=== PATIENT | male | born 1980 | race Caucasian/White ===

== ENCOUNTER 2017-06-23 22:18 | Emergency (ER) | payer OTHER ==
[~2017-06-23] VITALS: Ht 170.2 cm; Wt 62.0 kg
--- NOTE | 2017-06-23 23:07 | PD ---
HPI Chief Complaint: Psychiatric Symptoms Time Seen by Provider: 23:03 Travel History International Travel<30 days: No Contact w/Intl Traveler<30days: No Traveled to known affect area: No History of Present Illness HPI 37-year-old male presents emergency Department under Gupta act by PD. Patient states that he had contacted police because she was feeling sad. He states that he has a live-in girlfriend of 2 years that he feels has been using him for money to buy drugs. He also states that there was a black male that had called him inquiring whether he needed to buy some. The patient feels that this person may be one of her drug dealers. He denies any suicidal homicidal ideation. No toxic ingestions. He states that he merely would like to speak with someone. According to the Gupta act had made suicidal statement. The patient here denies this. PFSH Past Medical History Medical History: Denies Significant Hx Immunizations Current: No (NEVER WANTED THEM) Tetanus Vaccination: Unknown Past Surgical History Surgical History: No Previous Surgery Social History Alcohol Use: Yes Tobacco Use: No Substance Use: No Allergies-Medications Reported Meds & Prescriptions Reported Meds & Active Scripts Active No Active Prescriptions or Reported Medications Review of Systems Except as stated in HPI: all other systems reviewed are Neg Physical Exam Narrative GENERAL: Well-nourished, well-developed patient. SKIN: Warm and dry. HEAD: Normocephalic and atraumatic. EYES: No scleral icterus. No injection or drainage. ENT: No nasal drainage noted. Mucous membranes pink. Airway patent. NECK: Supple, trachea midline. Moves head freely without obvious discomfort. CARDIOVASCULAR: Regular rate and rhythm without murmurs, gallops, or rubs. RESPIRATORY: Breath sounds equal bilaterally. No accessory muscle use. GASTROINTESTINAL: Abdomen soft, non-tender, nondistended. EXTREMITIES: No cyanosis or edema. BACK: Nontender without obvious deformity. No CVA tenderness. NEURO: Patient is alert and oriented. no sensorimotor deficits. Nonfocal. Normal speech. PSYCH: No delusions. No auditory or visual hallucinations. Data Data Orders Complete Blood Count With Diff (06/23/17 22:38) Comprehensive Metabolic Panel (06/23/17 22:38) Psych Screen (06/23/17 22:38) Drug Screen, Random Urine (06/23/17 22:38) Alcohol (Ethanol) (06/23/17 22:38) Salicylates (Aspirin) (06/23/17 22:38) Tylenol (Acetaminophen) (06/23/17 22:38) Labs Laboratory Tests Test 06/23/17 06/23/17 22:56 23:03 Urine Opiates Screen NEG Urine Barbiturates Screen NEG Urine Amphetamines Screen NEG Urine Benzodiazepines Screen NEG Urine Cocaine Screen NEG Urine Cannabinoids Screen NEG White Blood Count 7.9 TH/MM3 Red Blood Count 4.49 MIL/MM3 Hemoglobin 13.9 GM/DL Hematocrit 40.2 % Mean Corpuscular Volume 89.6 FL Mean Corpuscular Hemoglobin 31.0 PG Mean Corpuscular Hemoglobin 34.6 % Concent Red Cell Distribution Width 12.8 % Platelet Count 274 TH/MM3 Mean Platelet Volume 7.6 FL Neutrophils (%) (Auto) 65.6 % Lymphocytes (%) (Auto) 21.7 % Monocytes (%) (Auto) 9.4 % Eosinophils (%) (Auto) 2.1 % Basophils (%) (Auto) 1.2 % Neutrophils # (Auto) 5.2 TH/MM3 Lymphocytes # (Auto) 1.7 TH/MM3 Monocytes # (Auto) 0.7 TH/MM3 Eosinophils # (Auto) 0.2 TH/MM3 Basophils # (Auto) 0.1 TH/MM3 CBC Comment DIFF FINAL Differential Comment Sodium Level 138 MEQ/L Potassium Level 3.3 MEQ/L Chloride Level 106 MEQ/L Carbon Dioxide Level 26.8 MEQ/L Anion Gap 5 MEQ/L Blood Urea Nitrogen 8 MG/DL Creatinine 0.88 MG/DL Estimat Glomerular Filtration 99 ML/MIN Rate Random Glucose 98 MG/DL Calcium Level 8.5 MG/DL Total Bilirubin 0.5 MG/DL Aspartate Amino Transf 12 U/L (AST/SGOT) Alanine Aminotransferase 22 U/L (ALT/SGPT) Alkaline Phosphatase 73 U/L Total Protein 7.3 GM/DL Albumin 4.1 GM/DL Salicylates Level LESS THAN 1.7 MG/DL Acetaminophen Level LESS THAN 2.0 MCG/ML Ethyl Alcohol Level LESS THAN 3 MG/DL MDM Medical Decision Making Medical Screen Exam Complete: Yes Emergency Medical Condition: Yes Medical Record Reviewed: Yes Interpretation(s) Laboratory Tests Test 06/23/17 06/23/17 22:56 23:03 Urine Opiates Screen NEG Urine Barbiturates Screen NEG Urine Amphetamines Screen NEG Urine Benzodiazepines Screen NEG Urine Cocaine Screen NEG Urine Cannabinoids Screen NEG White Blood Count 7.9 TH/MM3 Red Blood Count 4.49 MIL/MM3 Hemoglobin 13.9 GM/DL Hematocrit 40.2 % Mean Corpuscular Volume 89.6 FL Mean Corpuscular Hemoglobin 31.0 PG Mean Corpuscular Hemoglobin 34.6 % Concent Red Cell Distribution Width 12.8 % Platelet Count 274 TH/MM3 Mean Platelet Volume 7.6 FL Neutrophils (%) (Auto) 65.6 % Lymphocytes (%) (Auto) 21.7 % Monocytes (%) (Auto) 9.4 % Eosinophils (%) (Auto) 2.1 % Basophils (%) (Auto) 1.2 % Neutrophils # (Auto) 5.2 TH/MM3 Lymphocytes # (Auto) 1.7 TH/MM3 Monocytes # (Auto) 0.7 TH/MM3 Eosinophils # (Auto) 0.2 TH/MM3 Basophils # (Auto) 0.1 TH/MM3 CBC Comment DIFF FINAL Differential Comment Sodium Level 138 MEQ/L Potassium Level 3.3 MEQ/L Chloride Level 106 MEQ/L Carbon Dioxide Level 26.8 MEQ/L Anion Gap 5 MEQ/L Blood Urea Nitrogen 8 MG/DL Creatinine 0.88 MG/DL Estimat Glomerular Filtration 99 ML/MIN Rate Random Glucose 98 MG/DL Calcium Level 8.5 MG/DL Total Bilirubin 0.5 MG/DL Aspartate Amino Transf 12 U/L (AST/SGOT) Alanine Aminotransferase 22 U/L (ALT/SGPT) Alkaline Phosphatase 73 U/L Total Protein 7.3 GM/DL Albumin 4.1 GM/DL Salicylates Level LESS THAN 1.7 MG/DL Acetaminophen Level LESS THAN 2.0 MCG/ML Ethyl Alcohol Level LESS THAN 3 MG/DL Differential Diagnosis MDM: High Differential diagnoses: depression, adjustment reaction, mood disorder NOS, schizophrenia, psychosis NOS substance induced mood disorder, intermittent explosive disorder, , infection,electrolyte abnormality, malingering. Narrative Course Mental health screening discussed with the patient. Psychiatric screen ordered. The patient's been medically clear. This is medical clearance for psychiatric admission Diagnosis Primary Impression: Medical clearance for psychiatric admission Scripts No Active Prescriptions or Reported Meds Condition: Stable Alexis Hill Jun 23, 2017 23:07
[2017-06-23 23:51] LABS: AUTOMATED NEUTROPHIL # 5.2 TH/MM3 (1.8-7.7); BASOPHIL # 0.1 TH/MM3 (0-0.2); BASOPHIL % 1.2 % (0.0-2.0); EOSINOPHIL # 0.2 TH/MM3 (0-0.4); EOSINOPHIL % 2.1 % (0.0-4.0); HEMATOCRIT 40.2 % (39.0-51.0); HEMO FLAGS DIFF FINAL; LYMPH % 21.7 % (9.0-44.0); LYMPHOCYTE # 1.7 TH/MM3 (1.0-4.8); MEAN CELL VOLUME 89.6 FL (80.0-100.0); MEAN CORPUSCULAR HGB CONC 34.6 % (32.0-36.0); MONO % 9.4 % (0.0-8.0); NEUT % 65.6 % (16.0-70.0); PLATELET COUNT 274 TH/MM3 (150-450); RED BLOOD COUNT 4.49 MIL/MM3 (4.50-5.90); RED CELL DISTRIBUTION WIDTH 12.8 % (11.6-17.2); WHITE BLOOD COUNT 7.9 TH/MM3 (4.0-11.0)
[2017-06-24 00:18] LABS: ANION GAP 5 MEQ/L (5-15)
[2017-06-24 00:46] LABS: ACETAMINOPHEN LESS THAN 2.0 MCG/ML (10.0-30.0); ALCOHOL LESS THAN 3 MG/DL (0-5); ALKALINE PHOSPHATASE 73 U/L (45-117); ALT (GPT) 22 U/L (12-78); AST (GOT) 12 U/L (15-37); BICARBONATE 26.8 MEQ/L (21.0-32.0); BLOOD UREA NITROGEN 8 MG/DL (7-18); CHLORIDE 106 MEQ/L (98-107); GLOMERULAR FILTRATION RATE 99 ML/MIN (>89); POTASSIUM 3.3 MEQ/L (3.5-5.1); SODIUM (NA) 138 MEQ/L (136-145); TOTAL BILIRUBIN ADULT 0.5 MG/DL (0.2-1.0)
[2017-06-24 06:00] VITALS: BP 121/78; PULSE 55; RESP 16; O2SAT 99
--- NOTE | 2017-06-24 10:30 | PD ---
History of Present Illness Chief Complaint: Psychiatric Symptoms Time Seen by Provider: 10:15 Travel History International Travel<30 Days: No Contact w/Intl Traveler<30days: No Known affected area: No Legal Status Legal Status: Gupta Act Gupta Act Signed By: Uzma Gupta Act Comment: D/S LINUS MILLER#[id number] History of Present Illness: History of Present Illness HPI 37-year-old male of [place] descent presents emergency Department under Gupta act by PD.The BA alleges that he contacted the police and reported suicidal ideation. He did not make any attempts at harming himself. Patient states that he had contacted police because she was feeling sad. He states that he has a live-in girlfriend of 2 years that he feels has been using him for money to buy drugs. He also states that there was a black male that had called him inquiring whether he needed to buy some. The patient feels that this person may be one of her drug dealers. Patient was monitored in secure environment and he presented no suicidality and no behavior concerns. EMR is reviewed. No prior contact with [facility]. Toxicology is negative. The patient is alert tere oriented male in [facility]. Hygiene is adequate. he is calm, engaging and cooperative. Communicates in Hebrew. Speech is clear , logical. No psychosis, no vargas. No objective clinical symptoms of depression. He denies any vegetative symptoms as well. No vargas. No suicidal or homicidal ideation, intent or plan. He states that the police misunderstood him and that he never said he wanted to kill himself. he states ' I would never do that because my family will suffer". PFSH Past Medical History Medical History: Denies Significant Hx Immunizations Current: No (NEVER WANTED THEM) Tetanus Vaccination: Unknown Past Surgical History Surgical History: No Previous Surgery Psychiatric History Psychiatric History Hx Psychiatric Treatment: Denies any History of Inpatient Treatment: No Guns or firearms in home: No Social History Born and raised in [facility]. In [facility] x 10 years. Never attended formal schooling. Works in construction. Lives with girlfriend of 7 years. Hx Alcohol Use: Yes Hx Tobacco Use: No Hx Substance Use: No Hx of Substance Use Treatment: No Family Psychiatric History Negative Allergies-Medications Reported Meds & Prescriptions Reported Meds & Active Scripts Active No Active Prescriptions or Reported Medications Review of Systems Except as stated in HPI: all other systems reviewed are Neg Exam Alert: Yes [place]: Person (ox4) Mood: Calm Affect: Appropriate Speech: Clear, Logical Eye Contact: Normal Memory Intact: Comment (No impairmetn) Hallucinations: Other (Negative) Delusions: No Suicidal: Ideation (Deneis any) Homicidal: Ideation (Denies any) Insight/Judgement Fair. Not impaired. MDM Medical Decision Making Medical Record Reviewed: Yes Assessment/Plan 37-year-old male of [place] descent presents emergency Department under Gupta act by PD.The BA alleges that he contacted the police and reported suicidal ideation. He did not make any attempts at harming himself. Patient states that he had contacted police because she was feeling sad. Patietn with no attempt at harming himself. He denies any psychosis. he presents no acute psychiatric symptomatology. He does not meet criteria for BA. Lift BA. Supportive interventions. Orders Complete Blood Count With Diff (06/23/17 22:38) Comprehensive Metabolic Panel (06/23/17 22:38) Psych Screen (06/23/17 22:38) Drug Screen, Random Urine (06/23/17 22:38) Alcohol (Ethanol) (06/23/17 22:38) Salicylates (Aspirin) (06/23/17 22:38) Tylenol (Acetaminophen) (06/23/17 22:38) Diet Regular Basic (06/24/17 Breakfast) Diet Regular Basic (06/24/17 Lunch) Results Vital Signs Date Time Temp Pulse Resp B/P Pulse Ox O2 Delivery O2 Flow Rate FiO2 06/24/17 06:00 55 16 121/78 99 Room Air Laboratory Tests Test 06/23/17 06/23/17 22:56 23:03 Urine Opiates Screen NEG Urine Barbiturates Screen NEG Urine Amphetamines Screen NEG Urine Benzodiazepines Screen NEG Urine Cocaine Screen NEG Urine Cannabinoids Screen NEG White Blood Count 7.9 Red Blood Count 4.49 Hemoglobin 13.9 Hematocrit 40.2 Mean Corpuscular Volume 89.6 Mean Corpuscular Hemoglobin 31.0 Mean Corpuscular Hemoglobin 34.6 Concent Red Cell Distribution Width 12.8 Platelet Count 274 Mean Platelet Volume 7.6 Neutrophils (%) (Auto) 65.6 Lymphocytes (%) (Auto) 21.7 Monocytes (%) (Auto) 9.4 Eosinophils (%) (Auto) 2.1 Basophils (%) (Auto) 1.2 Neutrophils # (Auto) 5.2 Lymphocytes # (Auto) 1.7 Monocytes # (Auto) 0.7 Eosinophils # (Auto) 0.2 Basophils # (Auto) 0.1 CBC Comment DIFF FINAL Differential Comment Sodium Level 138 Potassium Level 3.3 Chloride Level 106 Carbon Dioxide Level 26.8 Anion Gap 5 Blood Urea Nitrogen 8 Creatinine 0.88 Estimat Glomerular Filtration 99 Rate Random Glucose 98 Calcium Level 8.5 Total Bilirubin 0.5 Aspartate Amino Transf 12 (AST/SGOT) Alanine Aminotransferase 22 (ALT/SGPT) Alkaline Phosphatase 73 Total Protein 7.3 Albumin 4.1 Salicylates Level LESS THAN 1.7 Acetaminophen Level LESS THAN 2.0 Ethyl Alcohol Level LESS THAN 3 Diagnosis Primary Impression: Medical clearance for psychiatric admission Additional Impression: Adjustment disorder Psychiatrically Cleared: Yes Med/ Other Pt Specific Info: No Meds Exist/No RX given Prescriptions No Active Prescriptions or Reported Meds Disposition: 01 DISCHARGE HOME Condition: Stable Problem Qualifiers Additional Impression: Adjustment disorder Qualified Code: F43.21 - Adjustment disorder with depressed mood Emily Gordon [facility] Jun 24, 2017 10:30
[2017-06-24 10:33] VITALS: BP 121/78; TEMP 98.1
== END 2017-06-24 10:50 | disposition home or self-care (01) ==
LOC: NEPD 22:18 → NEPJ 06-24 10:50
DX: Z02.89 Encounter for other administrative examinations (principal); F43.21 Adjustment disorder with depressed mood
CPT/HCPCS: 80053; 80307; 85025; 99284